=== PATIENT | male | born 1990 | race African-American/Black ===

== ENCOUNTER 2017-04-14 05:58 | Emergency (ER) | payer OTHER, SELFPAY | END 2017-04-14 07:30 | disposition home or self-care (01) | LOC: ERS 05:58 | DX: Z00.00 Encounter for general adult medical examination without abnormal findings (principal); F17.210 Nicotine dependence, cigarettes, uncomplicated | CPT/HCPCS: 99282 ==

== ENCOUNTER 2018-09-30 05:33 | Emergency (ER) | payer SELFPAY | END 2018-09-30 07:33 | disposition home or self-care (01) | LOC: ERS 05:33 | DX: R11.2 Nausea with vomiting, unspecified (principal); R19.7 Diarrhea, unspecified; I10 Essential (primary) hypertension; F17.210 Nicotine dependence, cigarettes, uncomplicated | CPT/HCPCS: 99283 ==

== ENCOUNTER 2022-11-22 09:56 | Outpatient (CLI) | payer BC | END 2022-11-22 09:57 | disposition home or self-care (01) | LOC: RAD 09:56 | PROVIDERS: ATTEND Plastic Surgery Surgery of the Hand | DX: S49.92XA Unspecified injury of left shoulder and upper arm, initial encounter (principal) ==